=== PATIENT | male | born 1945 | race Caucasian/White ===

== ENCOUNTER 2017-09-29 09:21 | Outpatient (CLI) | payer MEDICARE, OTHER ==
--- NOTE | 2017-09-29 15:14 | NM ---
TRIPLE PHASE BONE SCAN BOTH KNEES WELL WHOLE BODY DELAYED BONE SCAN: HISTORY: A 71-year-old with a history of bilateral knee pain. FINDINGS: Dose is 28 mCi of Technetium 99m-MDP. Dynamic imaging with blood flow, blood pool, and anterior and posterior delayed images obtained. Images demonstrate bilateral knee arthroplasties. No evidence of increased activity is seen to sugge st right or left knee osteomyelitis. The rest of the bone scan is unremarkable. IMPRESSION: Bilateral knee arthroplasties. No definite evidence of osteomyelitis in the knee seen. No other sig nificant bony lesions noted. POS: [facility]
== END 2017-09-29 09:22 | disposition home or self-care (01) ==
LOC: NM 09:21
PROVIDERS: ATTEND Specialist
DX: T84.84XA Pain due to internal orthopedic prosthetic devices, implants and grafts, initial encounter (principal); Z96.652 Presence of left artificial knee joint; Z96.651 Presence of right artificial knee joint
CPT/HCPCS: 78315; A9503

== ENCOUNTER 2024-06-23 20:25 | Inpatient (IN) | payer MEDICARE, OTHER ==
[2024-06-23 22:01] LABS: #Basophils 0.03 10x3/uL (0.0-0.2); %Basophils 0.3 % (0.0-1.0); %Eosinophils 5.2 % (0.0-10.0); %Lymphocytes 19.8 % (21.0-51.0); %Monocytes 8.1 % (0.0-10.0); %Neutrophils 65.7 % (42.0-75.0); Hematocrit 38.3 % (42.0-52.0); Hemoglobin 12.9 g/dL (14.0-18.0); Mean Corpuscular HGB CONC 33.7 g/dL (32.0-36.0); Mean Corpuscular Hemoglobin 28.9 pg (27.0-31.0); Mean Corpuscular Volume 85.9 fL (78.0-98.0); Mean Platelet Volume 9.9 fL (7.4-10.4); Platelet Count 255 10x3/uL (130-400); RBC Distribution Width 14.6 % (11.5-14.5); Red Blood Cell (RBC) Count 4.46 mill/uL (4.70-6.10)
[2024-06-23 22:18] LABS: ALT (SGPT) 34 U/L (Less than 45); AST (SGOT) 29 U/L (11-34); Albumin 2.9 g/dL (3.1-4.5); Alkaline Phosphatase 101 U/L (40-110); Anion Gap 15 mmol/L (10-20); BUN (Urea Nitrogen) 15 mg/dL (8.4-25.7); Bilirubin, Total 1.1 mg/dL (0.3-1.2); Calc. Creatinine Clearance 0 mL/min (70-130); Calcium 8.7 mg/dL (7.8-10.44); Carbon Dioxide 21 mmol/L (23-31); Chloride 104 mmol/L (98-107); Estimated GFR 88; Globulin 3.4 g/dL (2.4-3.5); Glucose 89 mg/dL (83-110); Potassium 4.3 mmol/L (3.5-5.1); Protein, Total 6.3 g/dL (5.8-8.1); Sodium 136 mmol/L (136-145)
[2024-06-23 22:22] LABS: Troponin I 0.014 ng/mL (< 0.028)
[2024-06-23] MEDS ORDERED: Ipratropium/Albuterol 3 ML NEB NEB PRN (23:17)
[2024-06-23] MEDS ORDERED: Ondansetron ODT 4 MG TAB PO PRN (23:17)
[2024-06-23] MEDS ORDERED: hydrALAZINE 20 MG/ML VIAL SLOW IVP PRN (23:17)
[2024-06-23] MEDS ORDERED: Morphine 2 MG/ML VIAL SLOW IVP PRN (23:17)
[2024-06-23] MEDS ORDERED: Dextrose 5% in Water 1,000 ML IV PRN (23:17)
[2024-06-23] MEDS ORDERED: Glucagon 1 MG/ML KIT IM PRN (23:17)
[2024-06-23] MEDS ORDERED: Dextrose 50% Abboject 50 ML SYRINGE SLOW IVP PRN (23:17)
[2024-06-24 00:17] VITALS: BMI 27.5
[2024-06-24] MEDS: Sodium Chloride 0.9% 1,000 ML IV SCH (01:10)
[2024-06-24 06:40] LABS: Anion Gap 13 mmol/L (10-20); BUN (Urea Nitrogen) 13 mg/dL (8.4-25.7); Calc. Creatinine Clearance 86 mL/min (70-130); Calcium 8.6 mg/dL (7.8-10.44); Carbon Dioxide 25 mmol/L (23-31); Chloride 104 mmol/L (98-107); Estimated GFR 87; Glucose 79 mg/dL (83-110); Potassium 4.3 mmol/L (3.5-5.1); Sodium 138 mmol/L (136-145)
[2024-06-24] MEDS ORDERED: Guaifenesin DM 100-10/5 ML UDCUP PO PRN (07:22)
[2024-06-24 08:03] LABS: #Basophils 0.05 10x3/uL (0.0-0.2); %Basophils 0.5 % (0.0-1.0); %Eosinophils 5.6 % (0.0-10.0); %Lymphocytes 19.3 % (21.0-51.0); %Monocytes 7.9 % (0.0-10.0); %Neutrophils 66.2 % (42.0-75.0); Hematocrit 36.8 % (42.0-52.0); Hemoglobin 12.1 g/dL (14.0-18.0); Mean Corpuscular HGB CONC 32.9 g/dL (32.0-36.0); Mean Corpuscular Hemoglobin 28.4 pg (27.0-31.0); Mean Corpuscular Volume 86.4 fL (78.0-98.0); Mean Platelet Volume 10.2 fL (7.4-10.4); Platelet Count 242 10x3/uL (130-400); RBC Distribution Width 14.9 % (11.5-14.5); Red Blood Cell (RBC) Count 4.26 mill/uL (4.70-6.10)
[2024-06-24] MEDS ORDERED: CEFAZOLIN 2 GM VIAL ONE (11:13)
[2024-06-24] MEDS ORDERED: Sodium Chloride 0.9% 100 ML ONE (11:15)
[2024-06-24] MEDS ORDERED: Tranexamic Acid 1,000 MG/10 ML VIAL ONE (11:15)
[2024-06-24] MEDS ORDERED: Rocuronium Bromide 10 MG/ML (10ML VIAL) ONE (11:16)
[2024-06-24] MEDS ORDERED: PROPOFOL 20 ML ONE (11:16)
[2024-06-24] MEDS ORDERED: fentaNYL PF 100 MCG/2 ML SYRINGE ONE (11:16)
[2024-06-24] MEDS ORDERED: Lidocaine 2% PF 5 ML VIAL ONE (11:16)
[2024-06-24] MEDS ORDERED: PHENYLEPHRINE-NS 100 MCG/ML 10 ML SYRINGE ONE (13:02)
[2024-06-24] MEDS ORDERED: SUGAMMADEX SODIUM 200 MG/2 ML VIAL ONE (13:08)
[2024-06-24] MEDS: Finasteride 5 MG TAB PO SCH (14:30)
[2024-06-24] MEDS: Methocarbamol 500 MG TAB PO PRN (14:59)
[2024-06-24] MEDS: Acetaminophen 325 MG TAB PO PRN (14:59)
[2024-06-24] MEDS: CEFAZOLIN 2 GM in Sodium Chloride 0.9% 100 ML IVPB SCH (17:58)
[2024-06-24] MEDS: traMADol HCl 50 MG TAB PO PRN (17:58)
[2024-06-25 07:43] LABS: #Basophils 0.03 10x3/uL (0.0-0.2); %Basophils 0.2 % (0.0-1.0); %Eosinophils 0.5 % (0.0-10.0); %Lymphocytes 8.9 % (21.0-51.0); %Monocytes 9.8 % (0.0-10.0); Hematocrit 33.6 % (42.0-52.0); Mean Corpuscular HGB CONC 32.7 g/dL (32.0-36.0); Mean Corpuscular Hemoglobin 28.3 pg (27.0-31.0); Mean Corpuscular Volume 86.4 fL (78.0-98.0); Mean Platelet Volume 9.8 fL (7.4-10.4); Platelet Count 212 10x3/uL (130-400); RBC Distribution Width 14.6 % (11.5-14.5); Red Blood Cell (RBC) Count 3.89 mill/uL (4.70-6.10)
[2024-06-25 07:57] LABS: Anion Gap 12 mmol/L (10-20); BUN (Urea Nitrogen) 13 mg/dL (8.4-25.7); Calc. Creatinine Clearance 74 mL/min (70-130); Calcium 8.1 mg/dL (7.8-10.44); Carbon Dioxide 24 mmol/L (23-31); Chloride 103 mmol/L (98-107); Estimated GFR 74; Glucose 127 mg/dL (83-110); Potassium 4.6 mmol/L (3.5-5.1); Sodium 134 mmol/L (136-145)
[2024-06-25] MEDS: Lactulose 20 GM (30 mL) UDCUP PO SCH (09:40)
[2024-06-25] MEDS: Polyethylene Glycol 3350 17 GM Packet PO SCH (09:40)
[2024-06-25] MEDS: Atorvastatin Calcium 40 MG TAB PO SCH (09:41)
[2024-06-25] MEDS: Docusate 100 MG CAP PO SCH (09:41)
[2024-06-25] MEDS: Senokot S 8.6-50 MG TAB PO SCH (09:41)
[2024-06-25] MEDS ORDERED: traMADol HCl 50 MG TAB PO PRN (09:43)
[2024-06-25] MEDS: Ketorolac Tromethamine 30 MG (1 mL) VIAL IVP SCH (10:20)
[2024-06-25] MEDS: Lactated Ringer's 500 ML IV SCH (10:21)
[2024-06-25] MEDS: Insulin Lispro 100 UNIT/ML 10 ML VIAL SC PRN (11:47)
[2024-06-25] MEDS: Acetaminophen 325 MG TAB PO SCH (11:49)
[2024-06-25] MEDS: traMADol HCl 50 MG TAB PO SCH (11:49)
[2024-06-25] MEDS: Enoxaparin 40 MG (0.4 mL) SYRINGE SC SCH (21:01)
[2024-06-26 05:08] LABS: #Basophils 0.05 10x3/uL (0.0-0.2); %Basophils 0.4 % (0.0-1.0); %Eosinophils 3.2 % (0.0-10.0); %Lymphocytes 13.5 % (21.0-51.0); %Monocytes 10.5 % (0.0-10.0); %Neutrophils 71.6 % (42.0-75.0); Hematocrit 33.1 % (42.0-52.0); Hemoglobin 10.9 g/dL (14.0-18.0); Mean Corpuscular HGB CONC 32.9 g/dL (32.0-36.0); Mean Corpuscular Hemoglobin 28.3 pg (27.0-31.0); Platelet Count 214 10x3/uL (130-400); RBC Distribution Width 14.8 % (11.5-14.5); Red Blood Cell (RBC) Count 3.85 mill/uL (4.70-6.10)
[2024-06-26 05:19] LABS: Anion Gap 12 mmol/L (10-20); BUN (Urea Nitrogen) 15 mg/dL (8.4-25.7); Calc. Creatinine Clearance 72 mL/min (70-130); Calcium 8.2 mg/dL (7.8-10.44); Carbon Dioxide 22 mmol/L (23-31); Chloride 102 mmol/L (98-107); Estimated GFR 71; Glucose 133 mg/dL (83-110); Potassium 3.6 mmol/L (3.5-5.1); Sodium 132 mmol/L (136-145)
[2024-06-26 11:21] LABS: Bacteria/HPF None Seen HPF (None Seen); Bilirubin Negative (Negative); Blood, Urine Negative (Negative); Clarity Turbid (Clear); Glucose, Urine (Dipstick) Normal (Negative); Ketone, Urine 10 mg/dL (Negative); Leukocyte Negative Leu/uL (Negative); Nitrite Negative (Negative); Protein, Urine (Dipstick) 50 mg/dL (Neg-Trace); Specific Gravity, Urine 1.048 (1.002-1.036); Urobilinogen Normal mg/dL (Less than 2); pH, Urine 5.5 (5.0-9.0)
[2024-06-26 12:19] VITALS: BP 118/75; TEMP 97.9
== END 2024-06-26 15:46 | DRG 522 ==
LOC: ERS 20:25 → SURG B 23:10
PROVIDERS: ADMIT Surgery; ATTEND Surgery
PROC: 0SRR0JZ Replacement of Right Hip Joint, Femoral Surface with Synthetic Substitute, Open Approach (ICD-10-PCS; principal; 2024-06-24)
DX: S72.001A Fracture of unspecified part of neck of right femur, initial encounter for closed fracture (principal); N17.9 Acute kidney failure, unspecified; I10 Essential (primary) hypertension; E11.9 Type 2 diabetes mellitus without complications; Z79.82 Long term (current) use of aspirin; Z79.899 Other long term (current) drug therapy; Z79.4 Long term (current) use of insulin; W19.XXXA Unspecified fall, initial encounter
CPT/HCPCS: 36415; 36416; 71045; 72170; 80048; 80053; 81001; 84484; 85025; 93005; 97139; J1650; J1815; J1885; J2704; J7030; J7120